=== PATIENT | male | born 1935 | race Caucasian/White ===

== ENCOUNTER → 2017-01-14 | Outpatient (CLI) | payer MEDICARE, BC ==
[2017-01-14 11:58] LABS: Potassium 4.9 mmol/L (3.5-5.1)
== END | disposition home or self-care (01) ==
LOC: LABWHC1 11:10
PROVIDERS: ATTEND Internal Medicine Interventional Cardiology
DX: I50.9 Heart failure, unspecified (principal); I25.10 Atherosclerotic heart disease of native coronary artery without angina pectoris
CPT/HCPCS: 36415; 80048

== ENCOUNTER 2017-01-20 18:46 | Inpatient (IN) | payer MEDICARE, BC ==
[2017-01-20] MEDS ORDERED: SODIUM CHLORIDE 0.9% 1,000 ML IV STA (19:23)
[2017-01-20] MEDS ORDERED: IPRATROPIUM-ALBUTEROL 3 ML NEB INHALATION STA (19:23)
--- NOTE | 2017-01-20 19:29 | ED ---
General Adult HPI - General Chief complaint: Shortness of Breath Stated complaint: SOB, Weakness Time Seen by Provider: 01/20/17 19:08 Source: patient, family Mode of arrival: wheelchair Limitations: no limitations - History of Present Illness Initial comments: This 81-year-old white male presents with with a complaint of some weakness and fatigue which has been present over the last 3 days. She gives most of the history is patient does have some Parkinson's disease and dementia. She relates that he is normally very active but has been much less active recently. He will sleep a lot. He is not eating much. She denies any focal weakness and it seems more generalized. She states that at times he has some irregular are sporadic difficulties in breathing. He denies any chest pain. She is worried about the possibility of dehydration. He also has had some swelling to his left leg this past week. She states that it seems as though his abdominal girth is somewhat increased are swollen. She denies any known fever. He was able to walk to the car [employer] but this is about as much activity as he is done in the past several days. No other complaints or modifying factors. - Related Data Home Medications Medication Instructions Recorded Confirmed Insuln Asp Prt/Insulin Aspart 15 units SQ BID@0800,1700 11/10/13 01/20/17 [NovoLOG MIX 70-30 VIAL] Cholecalciferol [Vitamin D3] 2,000 unit PO DAILY@1200 05/10/14 01/20/17 Insulin NPH Human Isophane 15 units SQ HS 05/10/14 01/20/17 [humuLIN N] Rivastigmine 4.6MG/24Hr Patch 1 each TRANSDERM Q24HR 05/10/14 01/20/17 [Exelon 4.6MG/24Hr Patch] Bimatoprost [Lumigan .01% Ophth 1 drop BOTH EYES HS 02/28/15 01/20/17 Soln] Losartan Potassium [Losartan 100 mg PO AC-BRKFST 02/28/15 01/20/17 Potassium] Aspirin 325 mg PO DAILY@1200 01/20/17 01/20/17 Atorvastatin [Lipitor] 40 mg PO HS 01/20/17 01/20/17 Carbidopa/Levodopa [Sinemet 25-100 1 tab PO QID 07/18/17 07/18/17 mg] Carbidopa/Levodopa [Sinemet Cr 2 tab PO HS 01/20/17 01/20/17 50-200 mg] Carboxymethylcellulose Sodium 1 drop BOTH EYES HS 01/20/17 01/20/17 [Refresh Tears] Diazepam [Valium] 2.5 - 5 mg PO BID@0800,1200 01/20/17 01/20/17 Docusate [Colace] 100 mg PO DAILY@1200 01/20/17 01/20/17 Furosemide [Lasix] 10 mg PO DAILY 01/20/17 01/20/17 Melatonin 12mg 12 mg PO HS 01/20/17 01/20/17 Metoprolol Tartrate [Lopressor] 50 mg PO BID 01/20/17 01/20/17 Midodrine HCl [ProAmatine] 2.5 mg PO TID 01/20/17 01/20/17 Ranolazine [Ranexa] 500 mg PO BID 01/20/17 01/20/17 Vit C/E/Zn/Coppr/Lutein/Zeaxan 1 cap PO DAILY 01/20/17 01/20/17 [Preservision Areds 2 Softgel] Allergies Allergy/AdvReac Type Severity Reaction Status Date / Time No Known Allergies Allergy Verified 01/20/17 19:22 Review of Systems ROS Statement: Those systems with pertinent positive or pertinent negative responses have been documented in the HPI. ROS Other: All systems not noted in ROS Statement are negative. Past Medical History Past Medical History: Atrial Fibrillation, Coronary Artery Disease (CAD), Chest Pain / Angina, Diabetes Mellitus, Hypertension, Neurologic Disorder, Osteoarthritis (OA), Skin Disorder Additional Past Medical History / Comment(s): migraines, bruises easily, frequent urination, macular degeneration, CAD, CABG, A.FIB, PARKINSON'S, History of Any Multi-Drug Resistant Organisms: None Reported Past Surgical History: Coronary Bypass/CABG Additional Past Surgical History / Comment(s): CABG 5 VESSEL 1996 IN [facility], "umbillical surgery", BILATERAL cataracts. PARTIAL KNEE REPLACEMENT R SIDE. Past Anesthesia/Blood Transfusion Reactions: Motion Sickness Additional Past Anesthesia/Blood Transfusion Reaction / Comment(s): PT RECIEVED BLOOD NO REACTION Past Psychological History: No Psychological Hx Reported Smoking Status: Never smoker Past Alcohol Use History: Occasional Past Drug Use History: None Reported - Past Family History Mother Additional Family Medical History / Comment(s): MOTHER AT 88. SHE HAD PARKINSON'S DX. Father Family Medical History: CVA/TIA Additional Family Medical History / Comment(s): FATHER AT AGE 71 OF CVA. General Exam - General Exam Comments Initial Comments: GENERAL: The patient is well nourished and well hydrated. VITAL SIGNS: Heart rate, blood pressure, respiratory rate reviewed as recorded in nurse's notes. EYES: Pupils are round and reactive. Extraocular movements are intact. No conjunctival / lid redness or swelling. ENT: No external evidence of injury, swelling, or ecchymosis. Airway is patent. Throat is clear. NECK: Nontender. No swelling or evidence of injury. No subcutaneous emphysema. Trachea is midline. No thyroid mass. HEART: Regular rate and rhythm. Good peripheral pulses. LUNGS/CHEST: Breath sounds clear and equal bilaterally. No rales, rhonchi, or wheezes. No ecchymosis, subcutaneous emphysema, or tenderness. Pulse ox is approximately 92% on room air. ABDOMEN: Abdomen soft without tenderness. No palpable masses or organomegaly. No peritoneal signs. No abdominal wall swelling or ecchymosis. EXTREMITIES: There is left lower extremity edema and swelling as compared to the right in the calf region. Normal muscle tone and function. No thoracolumbar tenderness. NEUROLOGIC: Sensation is grossly intact. Cranial nerve exam reveals face is symmetrical, tongue is midline, speech is clear. SKIN: No abrasions or ecchymosis is noted. No induration or masses noted. PSYCHIATRIC: Alert and in no distress. He will answer questions appropriately. Limitations: no limitations Course Vital Signs 01/20/17 01/20/17 01/20/17 19:08 19:14 19:19 Temperature 97.8 F Pulse Rate 109 H Pulse Rate [ 109 H Wildlife Biostation Research Ecologist ] Respiratory 26 H 26 H Rate Blood Pressure 139/86 O2 Sat by Pulse 93 L Oximetry 01/20/17 01/20/17 01/20/17 19:21 20:05 20:15 Temperature Pulse Rate 91 93 Pulse Rate [ Wildlife [employer] Research Ecologist ] Respiratory 26 H Rate Blood Pressure O2 Sat by Pulse Oximetry Medical Decision Making - Medical Decision Making The patient was seen and examined. All diagnostics were reviewed. The EKG shows evidence of atrial flutter with a variable AV block. There is evidence of a left bundle branch block. The AK interval was not measured. The QRS duration is 148 the QTc interval is 522. The patient was placed on a cardiac monitor technician and his heart rate is approximately 92. The patient does receive a DuoNeb breathing treatment. The laboratory is reviewed and this does show mild stable renal insufficiency. The troponin and CK-MB are mildly elevated. The BNP is significantly elevated at 13,000. The chest x-ray does show evidence of congestive heart failure. Radiology notes that a right lower lobe infiltrate cannot be ruled out. Postoperative changes are noted. It is felt as though he has a degree of congestive heart failure and would benefit from admission to the hospital for further treatment. It is felt less likely that this is related to any pneumonia. His lower extremity venous Doppler is currently pending but will be followed up with. Case is discussed with internal medicine and they are agreeable with admission. - Lab Data Result diagrams: 01/20/17 19:25 01/20/17 19:25 Lab Results 01/20/17 01/20/17 01/20/17 Range/Units 19:25 19:25 19:25 WBC 5.4 (3.8-10.6) k/uL RBC 3.93 L (4.30-5.90) m/uL Hgb 14.3 (13.0-17.5) gm/dL Hct 43.5 (39.0-53.0) % MCV 110.7 H (80.0-100.0) fL MCH 36.4 H (25.0-35.0) pg MCHC 32.9 (31.0-37.0) g/dL RDW 14.2 (11.5-15.5) % Plt Count 154 (150-450) k/uL Neutrophils % 67 % Lymphocytes % 19 % Monocytes % 9 % Eosinophils % 2 % Basophils % 1 % Neutrophils # 3.6 (1.3-7.7) k/uL Lymphocytes # 1.0 (1.0-4.8) k/uL Monocytes # 0.5 (0-1.0) k/uL Eosinophils # 0.1 (0-0.7) k/uL Basophils # 0.1 (0-0.2) k/uL Macrocytosis Marked Sodium 138 (137-145) mmol/L Potassium 4.7 (3.5-5.1) mmol/L Chloride 105 (98-107) mmol/L Carbon Dioxide 24 (22-30) mmol/L Anion Gap 9 mmol/L BUN 31 H (9-20) mg/dL Creatinine 1.54 H (0.66-1.25) mg/dL Est GFR (MDRD) Af Amer 53 (>60 ml/min/1.73 sqM) Est GFR (MDRD) Non-Af 43 (>60 ml/min/1.73 sqM) Glucose 209 H (74-99) mg/dL Calcium 8.5 (8.4-10.2) mg/dL Total Bilirubin 1.0 (0.2-1.3) mg/dL AST 19 (17-59) U/L ALT 12 L (21-72) U/L Alkaline Phosphatase 88 (38-126) U/L Total Creatine Kinase 73 (55-170) U/L CK-MB (CK-2) 3.7 H* (0.0-2.4) ng/mL CK-MB (CK-2) Rel Index 5.1 Troponin I 0.036 H* (0.000-0.034) ng/mL NT-Pro-B Natriuret Pep pg/mL Total Protein 6.2 L (6.3-8.2) g/dL Albumin 3.4 L (3.5-5.0) g/dL Urine Color Urine Appearance (Clear) Urine pH (5.0-8.0) Ur Specific [place] (1.001-1.035) Urine Protein (Negative) Urine Glucose (UA) (Negative) Urine Ketones (Negative) Urine Blood (Negative) Urine Nitrite (Negative) Urine Bilirubin (Negative) Urine Urobilinogen (<2.0) mg/dL Ur Leukocyte Esterase (Negative) Urine RBC (0-5) /hpf Urine WBC (0-5) /hpf Ur Squamous Epith Cells (0-4) /hpf Urine Bacteria (None) /hpf Hyaline Casts (0-2) /lpf Urine Mucus (None) /hpf 01/20/17 01/20/17 Range/Units 19:33 20:00 WBC (3.8-10.6) k/uL RBC (4.30-5.90) m/uL Hgb (13.0-17.5) gm/dL Hct (39.0-53.0) % MCV (80.0-100.0) fL MCH (25.0-35.0) pg MCHC (31.0-37.0) g/dL RDW (11.5-15.5) % Plt Count (150-450) k/uL Neutrophils % % Lymphocytes % % Monocytes % % Eosinophils % % Basophils % % Neutrophils # (1.3-7.7) k/uL Lymphocytes # (1.0-4.8) k/uL Monocytes # (0-1.0) k/uL Eosinophils # (0-0.7) k/uL Basophils # (0-0.2) k/uL Macrocytosis Sodium (137-145) mmol/L Potassium (3.5-5.1) mmol/L Chloride (98-107) mmol/L Carbon Dioxide (22-30) mmol/L Anion Gap mmol/L BUN (9-20) mg/dL Creatinine (0.66-1.25) mg/dL Est GFR (MDRD) Af Amer (>60 ml/min/1.73 sqM) Est GFR (MDRD) Non-Af (>60 ml/min/1.73 sqM) Glucose (74-99) mg/dL Calcium (8.4-10.2) mg/dL Total Bilirubin (0.2-1.3) mg/dL AST (17-59) U/L ALT (21-72) U/L Alkaline Phosphatase (38-126) U/L Total Creatine Kinase (55-170) U/L CK-MB (CK-2) (0.0-2.4) ng/mL CK-MB (CK-2) Rel Index Troponin I (0.000-0.034) ng/mL NT-Pro-B Natriuret Pep 90400 pg/mL Total Protein (6.3-8.2) g/dL Albumin (3.5-5.0) g/dL Urine Color Yellow Urine Appearance Clear (Clear) Urine pH 6.0 (5.0-8.0) Ur Specific [place] 1.017 (1.001-1.035) Urine Protein 2+ H (Negative) Urine Glucose (UA) Negative (Negative) Urine Ketones Negative (Negative) Urine Blood Negative (Negative) Urine Nitrite Negative (Negative) Urine Bilirubin Negative (Negative) Urine Urobilinogen 4.0 (<2.0) mg/dL Ur Leukocyte Esterase Negative (Negative) Urine RBC 2 (0-5) /hpf Urine WBC 3 (0-5) /hpf Ur Squamous Epith Cells 1 (0-4) /hpf Urine Bacteria Rare H (None) /hpf Hyaline Casts 4 H (0-2) /lpf Urine Mucus Rare H (None) /hpf Disposition Clinical Impression: Weakness, Dementia, Parkinson disease, Hypoxia, Left leg swelling, CHF ( congestive heart failure), Elevated troponin level, Renal insufficiency, Hyperglycemia, Non-ST elevation KS (NSTEMI) Disposition: ADMITTED IP TO THIS HOSP Condition: Fair Referrals: Peyman Bryant MD [Primary Care Provider] - 1-2 days Time of Disposition: 20:53 Decision Date: 01/20/17 Decision Time: 20:53
[2017-01-20 19:43] LABS: Basophils # (A) 0.1 k/uL (0-0.2); Basophils % (A) 1 %; CH 35.1; CHCM 31.9; Eosinophils # (A) 0.1 k/uL (0-0.7); Eosinophils % (A) 2 %; HCT 43.5 % (39.0-53.0); HDW 2.27; HGB 14.3 gm/dL (13.0-17.5); Luc # (Auto) 0.12; Luc % (Auto) 2; Lymphocytes % (A) 19 %; MCH 36.4 pg (25.0-35.0); MCHC 32.9 g/dL (31.0-37.0); MCV 110.7 fL (80.0-100.0); Macrocytosis Marked; Mean Platelet Volume 8.6; Monocytes # (A) 0.5 k/uL (0-1.0); Monocytes % (A) 9 %; Neutrophils # (A) 3.6 k/uL (1.3-7.7); Neutrophils % (A) 67 %; RBC 3.93 m/uL (4.30-5.90); RDW 14.2 % (11.5-15.5); WBC 5.4 k/uL (3.8-10.6); WBC (Perox) 5.45
[2017-01-20 19:54] LABS: Calcium 8.5 mg/dL (8.4-10.2); Potassium 4.7 mmol/L (3.5-5.1); Total Protein 6.2 g/dL (6.3-8.2)
[2017-01-20 20:06] LABS: INR 1.1 (<1.2); Partial Thromboplastin Time 24.4 sec (22.0-30.0); Prothrombin Time 11.4 sec (9.0-12.0)
[2017-01-20 20:20] LABS: Creatine Kinase MB 3.7 ng/mL (0.0-2.4); Troponin I 0.036 ng/mL (0.000-0.034)
[2017-01-20 20:22] LABS: Appearance,Urine Clear (Clear); Bacteria,Urine Rare /hpf; Bilirubin,Urine Negative (Negative); Glucose,Urine (UA) Negative (Negative); Ketones,Urine Negative (Negative); Leukocyte Esterase,Urine Negative (Negative); Mucus,Urine Rare /hpf; Nitrite,Urine Negative (Negative); Particle Count 1252; Protein,Urine 2+ (Negative); RBC,Urine 2 /hpf (0-5); Specific Gravity,Urine 1.017 (1.001-1.035); Squamous Epithelial Cell,Urine 1 /hpf (0-4); UA Billing (MACRO vs. MICRO) MICRO; WBC,Urine 3 /hpf (0-5)
[2017-01-20] MEDS ORDERED: NITROGLYCERIN OINT 1 INCH/GM PACKET TOPICAL STA (20:39)
[2017-01-20] MEDS ORDERED: ASPIRIN 81 MG CHEW PO STA (20:39)
[2017-01-20] MEDS ORDERED: FUROSEMIDE 10 MG/ML 10 ML VIAL IV STA (20:41)
--- NOTE | 2017-01-20 20:42 | XR ---
EXAMINATION TYPE: XR chest 2V DATE OF EXAM: 01/20/2017 COMPARISON: 02/28/2015 HISTORY: Difficulty breathing chest pain TECHNIQUE: Frontal and lateral views of the chest are obtained. FINDINGS: Heart is enlarged. There is pulmonary vascular congestion there is blunting of costophreni c angles. Thoracic aorta is atheromatous. There is left axillary pacemaker with the lead tips in the right ventricle. Bony thorax appears intact. IMPRESSION: Congestive heart failure with pleural effusions. This appears worse than last exam. Righ t lower lobe pneumonia cannot be excluded.
[2017-01-20] MEDS ORDERED: HEPARIN SODIUM,PORCINE 5,000 UNIT/ML 1 ML VIAL IV ONE (21:08)
[2017-01-20] MEDS ORDERED: HEPARIN SODIUM,PORCINE 5,000 UNIT/ML 1 ML VIAL IV PRN (21:08)
[2017-01-20] MEDS ORDERED: HEPARIN SODIUM,PORCINE/D5W PMX 25,000 UNIT in DEXTROSE/WATER 1 500ML.BAG IV SCH (21:15)
--- NOTE | 2017-01-20 21:29 | US ---
EXAMINATION TYPE: US venous doppler duplex LE LT DATE OF EXAM: 01/20/2017 9:18 PM COMPARISON: NONE CLINICAL HISTORY: Swelling left leg SIDE PERFORMED: Left TECHNIQUE: The lower extremity deep venous system is examined utilizing real time linear array sonog comfort with graded compression, doppler sonography and color-flow sonography. VESSELS IMAGED: External Iliac Vein (EIV) Common Femoral Vein Deep Femoral Vein Greater Saphenous Vein * Femoral Vein Popliteal Vein Small Saphenous Vein * Proximal Calf Veins (* superficial vessels) Left Leg: Negative for DVT IMPRESSION: Negative exam. No evidence of deep venous thrombosis in left leg.
[2017-01-20 21:39] LABS: Glucose,Whole Blood 197 mg/dL (75-99)
[2017-01-20] MEDS ORDERED: MIDODRINE 5 MG TAB PO SCH (22:00)
[2017-01-20] MEDS: DIAZEPAM 5 MG TAB PO PRN (22:56)
[2017-01-20] MEDS: CARBIDOPA-LEVODOPA 25-100 MG 1 EACH TAB PO SCH (22:56)
[2017-01-21 03:52] LABS: Basophils % (A) 1 %; CH 35.5; CHCM 31.4; Eosinophils # (A) 0.1 k/uL (0-0.7); Eosinophils % (A) 2 %; HCT 42.2 % (39.0-53.0); HDW 2.15; HGB 13.5 gm/dL (13.0-17.5); Luc # (Auto) 0.12; Luc % (Auto) 2; Lymphocytes # (A) 0.9 k/uL (1.0-4.8); Lymphocytes % (A) 16 %; MCH 36.4 pg (25.0-35.0); MCHC 32.1 g/dL (31.0-37.0); MCV 113.6 fL (80.0-100.0); Macrocytosis Marked; Mean Platelet Volume 8.8; Monocytes # (A) 0.5 k/uL (0-1.0); Monocytes % (A) 9 %; Neutrophils # (A) 3.9 k/uL (1.3-7.7); Neutrophils % (A) 71 %; RBC 3.72 m/uL (4.30-5.90); RDW 14.5 % (11.5-15.5); WBC 5.5 k/uL (3.8-10.6); WBC (Perox) 5.67
[2017-01-21 04:30] LABS: Creatine Kinase MB 3.3 ng/mL (0.0-2.4); Troponin I 0.039 ng/mL (0.000-0.034)
[2017-01-21 06:11] LABS: Glucose,Whole Blood 150 mg/dL (75-99)
[2017-01-21] MEDS: LOSARTAN 50 MG TAB PO SCH (06:48)
[2017-01-21] MEDS ORDERED: FUROSEMIDE 10 MG/ML 4 ML VIAL IV SCH (09:00)
[2017-01-21] MEDS ORDERED: ASPIRIN 325 MG TAB PO SCH (09:00)
[2017-01-21] MEDS: NITROGLYCERIN OINT 1 INCH/GM PACKET TOPICAL SCH ×4 (09:02→23:36)
[2017-01-21] MEDS: CARBIDOPA-LEVODOPA 25-100 MG 1 EACH TAB PO SCH ×4 (09:07→21:57)
[2017-01-21] MEDS: RANOLAZINE 500 MG TAB.ER.12H PO SCH ×2 (09:07→22:01)
[2017-01-21] MEDS: METOPROLOL TARTRATE 50 MG TAB PO SCH ×2 (09:07→22:01)
[2017-01-21] MEDS: FUROSEMIDE 10 MG/ML 4 ML VIAL IV SCH ×3 (09:08→23:36)
[2017-01-21] MEDS: RIVASTIGMINE 4.6MG/24HR PATCH TRANSDERM SCH (09:08)
[2017-01-21] MEDS: VIT A,C & E-LUTEIN-MINERALS 1 EACH TAB PO SCH (09:08)
--- NOTE | 2017-01-21 09:34 | ECHOF ---
Referral Reason:Heart Failure MEASUREMENTS -------- HEIGHT: 175.3 cm WEIGHT: 91.2 kg BP: 129/68 IVSd: 0.7 cm (0.6 - 1.1) LVIDd: 5.0 cm (3.9 - 5.3) LVPWd: 0.9 cm (0.6 - 1.1) IVSs: 0.8 cm LVIDs: 4.6 cm LVPWs: 0.9 cm Ao Diam: 3.1 cm (2.0 - 3.7) AV Cusp: 1.4 cm (1.5 - 2.6) LA Diam: 3.0 cm (2.7 - 3.8) MV EXCURSION: 19.436 mm (> 18.000) MV EF SLOPE: 183 mm/s (70 - 150) EPSS: 0.5 cm MV E Henri: 0.96 m/s MV DecT: 76 ms MV A Henri: 0.48 m/s MV E/A Ratio: 2.03 RAP: 5.00 mmHg RVSP: 28.35 mmHg FINDINGS -------- Atrial fibrillation. Paced rhythm. This was a technically difficult study with suboptimal views. Left ventricular wall thickness is normal. There is severe global hypokinesis of LV . Overall left ventricular systolic function is severely impaired with, an EF < 20%. The right ventricle is normal in size and function. The left atrium is normal in size. The right atrium is normal in size. 1.5mg of Definity was utilized for enhancement of images There is mild aortic valve sclerosis. Mild mitral annular calcification present. Mild mitral regurgitation is present. Trace tricuspid regurgitation present. The right ventricular systolic pressure, as measured by Doppler, is 28.35mmHg. The pulmonic valve was not well visualized. There is no pulmonic regurgitation present. The aortic root size is normal. There is no pericardial effusion. CONCLUSIONS -------- 1. Paced rhythm. 2. Trace tricuspid regurgitation present. 3. The right ventricular systolic pressure, as measured by Doppler, is 28.35mmHg. 4. There is no pulmonic regurgitation present. 5. The aortic root size is normal. 6. There is no pericardial effusion. 7. This was a technically difficult study with suboptimal views. 8. Left ventricular wall thickness is normal. 9. There is severe global hypokinesis of LV . 10. Overall left ventricular systolic function is severely impaired with, an EF < 20%. 11. The left atrium is normal in size. 12. 1.5mg of Definity was utilized for enhancement of images 13. There is mild aortic valve sclerosis. 14. Mild mitral regurgitation is present. AIRCRAFT SHIPPING CHECKER: Meenakshi Oconnell RDCS
[2017-01-21 09:51] LABS: Creatine Kinase MB 3.2 ng/mL (0.0-2.4); Troponin I 0.037 ng/mL (0.000-0.034)
[2017-01-21] MEDS: DOCUSATE 100 MG CAP PO SCH (11:36)
[2017-01-21] MEDS: CHOLECALCIFEROL 1,000 UNIT TAB PO SCH (11:36)
[2017-01-21] MEDS: DIAZEPAM 5 MG TAB PO PRN (11:36)
[2017-01-21] MEDS ORDERED: HEPARIN SODIUM,PORCINE 5,000 UNIT/ML 1 ML VIAL ONE (11:43)
[2017-01-21] MEDS: HEPARIN SODIUM,PORCINE 5,000 UNIT/ML 1 ML VIAL SQ SCH ×2 (11:44→22:00)
[2017-01-21] MEDS: INSULN ASP PRT/INSULIN ASPART 100 UNIT/ML 10 ML VIAL SQ SCH ×2 (11:44→17:44)
--- NOTE | 2017-01-21 20:44 | CONS ---
This is an 81-year-old gentleman with a known history of severe significant CAD , parkinsonism, chronic headaches, type 2 diabetes, hypertension, hyperlipidemia. He has had a cardiac catheterization performed by me in 2007, after which I suggested that we pursue medical therapy and no intervention. He also developed atrial fibrillation with slow rate, and after extensive discussion ( ) because of high fall risk, he has not been taking any anticoagulation. He comes into the hospital, brought in by his , with complaints of feeling weak, tired, exhausted, lack of energy and shortness of breath. At the time of my evaluation, he is resting comfortably. He denies any chest discomfort. He had also one episode of near-syncope 3 days ago. He is having progressive weakness and lack of energy and also not sleeping well. PAST MEDICAL HISTORY: 1. Ischemic cardiomyopathy. 2. Persistent chronic atrial fibrillation. 3. Sick sinus syndrome with a permanent pacemaker. 4. Type 2 diabetes mellitus. 5. Hypertension. 6. Hyperlipidemia. 7. Autonomic dysfunction, on midodrine. Medications at home include: 1. Aspirin. 2. Atorvastatin. 3. Exelon patch. 4. Lopressor. 5. Losartan. 6. Melatonin. 7. Midodrine. 8. Ranexa. 9. NovoLog. Patient had previous bypass surgery as well, and a cardiac catheterization from May 2008 revealed that [place] ( ) and circumflex and moderate non- critical disease. RCA is totally occluded. Vein graft to the PDA branch of RCA and vein graft to the diagonal was widely patent. Obtuse marginal grafts are not visualized and [place] to LAD was atrophic with very limited flow. His bypass surgery was performed in 1996. On examination, blood pressure is 130/80. Pulse rate is about 80 per minute, irregular. HEENT: Unremarkable. Fundus was not examined by me. Neck is supple. There is JVD of 1 to 2 cm. No carotid bruit. Heart exam reveals S1, S2 with tachycardia, a short systolic murmur at the base. Lungs reveal diminished air entry. Abdomen is soft, non-tender. Lower extremities reveal 1+ edema bilaterally. CENTRAL NERVOUS SYSTEM: Grossly within normal limits. EKG revealed an atrial flutter with a variable block, IVCD, and non-specific ST- T changes. Laboratory data suggest significant elevation of BNP. Troponin profile does not suggest any myocardial injury, as the average numbers are 0.03. D-dimer is modestly elevated. IMPRESSION: 1. Exacerbation of congestive heart failure. 2. Ischemic cardiomyopathy. 3. Chronic persistent atrial fibrillation. 4. History of chronic headaches. 5. Parkinsonism. RECOMMENDATIONS: I am recommending that we continue IV Lasix for now as ordered by Dr. Bryant, continue his other medications. Based on clinical course, I will make further recommendations. His medications have all been resumed. Patient also had a venous Doppler study performed of his left leg which was negative for DVT. Echocardiogram suggests significant decrease in contractility and ejection fraction of about 20% or less. He has aortic valve sclerosis but no significant pulmonary hypertension. Continue diuresis for now and other medications. Based on clinical course, I will make further recommendations. Prognosis remains guarded. Thank you very much for the consult. BILLIE
[2017-01-21] MEDS: ARTIFICIAL TEARS-HYPROMELLOSE DROPS 15 ML BTL BOTH EYES SCH (21:59)
[2017-01-21] MEDS: ATORVASTATIN 40 MG TAB PO SCH (21:59)
[2017-01-21] MEDS: CARBIDOPA-LEVODOPA ER 50-200MG 1 EACH TABLET.ER PO SCH (21:59)
[2017-01-21] MEDS: LATANOPROST 0.005% OPHTH DROPS 2.5 ML BTL BOTH EYES SCH (22:00)
[2017-01-21] MEDS: INSULIN NPH 300 UNIT/3 ML VIAL SQ SCH (22:00)
[2017-01-21] MEDS: MELATONIN 5 MG TABLET PO SCH (22:01)
[2017-01-21 22:25] LABS: Glucose,Whole Blood 137 mg/dL (75-99)
[2017-01-22 06:33] LABS: Basophils % (A) 1 %; CHCM 31.4; Eosinophils # (A) 0.2 k/uL (0-0.7); Eosinophils % (A) 3 %; HCT 44.2 % (39.0-53.0); HGB 14.2 gm/dL (13.0-17.5); Luc # (Auto) 0.18; Luc % (Auto) 3; Lymphocytes # (A) 1.2 k/uL (1.0-4.8); Lymphocytes % (A) 21 %; MCHC 32.1 g/dL (31.0-37.0); MCV 112.2 fL (80.0-100.0); Macrocytosis Marked; Mean Platelet Volume 8.3; Monocytes # (A) 0.5 k/uL (0-1.0); Monocytes % (A) 10 %; Neutrophils # (A) 3.4 k/uL (1.3-7.7); Neutrophils % (A) 62 %; RBC 3.94 m/uL (4.30-5.90); WBC 5.5 k/uL (3.8-10.6)
[2017-01-22] MEDS: LOSARTAN 50 MG TAB PO SCH (06:46)
[2017-01-22 06:54] LABS: Glucose,Whole Blood 92 mg/dL (75-99)
[2017-01-22 06:58] LABS: Manual Review Performed
[2017-01-22] MEDS: NITROGLYCERIN OINT 1 INCH/GM PACKET TOPICAL SCH (07:55)
[2017-01-22] MEDS: FUROSEMIDE 10 MG/ML 4 ML VIAL IV SCH ×3 (08:04→23:24)
[2017-01-22] MEDS: HEPARIN SODIUM,PORCINE 5,000 UNIT/ML 1 ML VIAL SQ SCH ×2 (08:04→20:40)
[2017-01-22] MEDS: ASPIRIN 81 MG CHEW PO SCH (08:05)
[2017-01-22] MEDS: METOPROLOL TARTRATE 50 MG TAB PO SCH ×2 (08:05→20:40)
[2017-01-22] MEDS: RANOLAZINE 500 MG TAB.ER.12H PO SCH ×2 (08:05→20:40)
[2017-01-22] MEDS: VIT A,C & E-LUTEIN-MINERALS 1 EACH TAB PO SCH (08:05)
[2017-01-22] MEDS: RIVASTIGMINE 4.6MG/24HR PATCH TRANSDERM SCH (08:05)
[2017-01-22] MEDS: CARBIDOPA-LEVODOPA 25-100 MG 1 EACH TAB PO SCH ×4 (08:05→20:41)
[2017-01-22] MEDS: DIAZEPAM 5 MG TAB PO PRN ×2 (08:08→17:23)
[2017-01-22] MEDS: INSULN ASP PRT/INSULIN ASPART 100 UNIT/ML 10 ML VIAL SQ SCH ×2 (08:08→17:11)
[2017-01-22 08:21] LABS: Potassium 3.9 mmol/L (3.5-5.1)
[2017-01-22] MEDS: DOCUSATE 100 MG CAP PO SCH (11:37)
[2017-01-22] MEDS: CHOLECALCIFEROL 1,000 UNIT TAB PO SCH (11:37)
[2017-01-22 11:48] LABS: Glucose,Whole Blood 123 mg/dL (75-99)
--- NOTE | 2017-01-22 12:04 | HP ---
CHIEF COMPLAINT: Weakness HISTORY OF PRESENT ILLNESS: This 81-year-old gentleman was brought into the emergency room by the spouse. The patient had on Thursday, that is at least about 60 hours prior to this admission, had an episode of syncope lasting about a minute or so. The patient got up from a sitting position, walked to the car which was a short distance, maybe 30 feet or so. Patient primarily became unresponsive and the eyes just briefly rolled. The patient recovered from that pretty fast. 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 It was also noted by the spouse to have increasing edema and became more lethargic and weak and thus the patient was brought in the emergency room. The reports that he has had some shortness of breath. The patient does have mild dementia but he is able to keep a fairly good history. Patient has a history of chronic atrial fibrillation and does have a pacemaker. Patient did take all his medications. PAST MEDICAL HISTORY: Significant for hypertension of long-standing duration, history of diabetes mellitus for about 27 years. History of CABG x5 back in 1996. History of macular degeneration, chronic headaches and Parkinson's and history of herpes zoster in the past. No history of any myocardial infarction, severe lung disease, diabetic kidney disease, ulcers, TB, hepatitis. No history of any rheumatic fever, myocardial infarction or CVA. Patient also has history of Parkinson's. The Parkinson's seems to be fairly controlled with the present medical regimen. Patient has a history of frequent chronic headaches, mostly daily headache, little help by medications. ( ) did seem to help but the patient has increased edema with that. PAST SURGICAL HISTORY: Significant for umbilical hernia repair, right total knee arthroplasty, CABG in 1996, cataract surgery, colonoscopy in 2003. PERSONAL HISTORY: Nonsmoker, no alcohol. VACCINATION HISTORY: Previous tetanus, fluid shots, pneumo vaccine in 2010. ALLERGIES: LIPITOR which causes him to have gynecomastia. Medications include: 1. Eye vitamins. 2. Exelon 4.6 mg patch every 24 hours. 3. Ranexa 500 mg b.i.d. 4. Midodrine 2.5 mg t.i.d. 5. Metoprolol tartrate 50 mg b.i.d. 6. Melatonin 12 mg daily. 7. Losartan potassium 100 mg daily. 8. ( ) 9. NovoLog mix 70/30 fifteen units b.i.d. 0800 and 1700. 10. Insulin NPH 15 units a day. 11. Lasix 10 mg daily which was decreased daily from 20 mg. 12. Colace 100 mg daily. 13. Valium 2.5 to 5 mg p.r.n. for headaches and muscle aches. 14. Vitamin D3 two thousand units daily. 15. Refresh tears 1 drop both eyes at bedtime. 16. Carbidopa levodopa 50/200 two tablets at bedtime. 17. Sinemet 25/100 one q.i.d. 18. Eye drops Lumigan. 19. Lipitor 40 mg at bedtime. 20. Aspirin 325 mg daily. REVIEW OF SYSTEMS: NEURO: Has frequent headaches, chronic headache with no change, no dizziness. PSYCH: No anxiety. CARDIAC: No chest pain, palpitation. RESPIRATORY: No shortness of breath, cough, hemoptysis. GI: No nausea, vomiting, abdominal pain, diarrhea. : No present symptoms. ( ) EXTREMITIES: No pain. CONSTITUTIONAL: No fever, chills. PHYSICAL EXAMINATION: Pleasant gentleman in no distress at present. Vital signs reveal temperature 96.1, pulse is 92, respirations 18, blood pressure 138/86, pulse ox of 94% on room air. HEENT: Normocephalic. NECK: 1+ JVD, no carotid bruits appreciated. CHEST EXAMINATION: Mild decreased effort at the bases. CARDIAC: Distant heart sounds, S1, S2 with no gallop, systolic murmur, 2/6 left sternal border. ABDOMEN: Soft, bowel sounds are active. EXTREMITIES: Reveal trace edema right ankle, 1 to 2+ edema, left leg pain. NEUROLOGIC: Awake, alert, oriented. Well-coordinated movements. LABORATORY ASSESSMENT: Chest x-ray suggests CHF. Labs revealed BMP, PE and MP markedly elevated and no significant elevation on CPK's. Troponin remains stable at 0.037. Platelet count is mildly decreased at 136. Patient's BMP was about 13,000. ASSESSMENT: 1. Acute on chronic congestive cardiac failure secondary to systolic dysfunction. 2. Dilated cardiomyopathy, ischemic. 3. Chronic atrial fibrillation. 4. Diabetes mellitus. 5. Parkinson's. 6. Dementia. PLAN: The patient is stable, continue present medical regimen with IV diuresis. Patient's condition was explained to the patient and his spouse on the second visit today. Over the last visit, prognosis remains guarded. Patient will receive IV diuretics, potassium supplement placement as needed. Prognosis remains guarded. MTDD
--- NOTE | 2017-01-22 14:49 | PN ---
Mr. Tai admitted to the hospital with congestive heart failure. He has been diuresed aggressively, his last weight has a negative fluid balance. He is clinically feeling a lot better. He denies any chest discomfort. His breathing is much better. Plan is to continue the same diuretic program for another 24 hours. Electrolytes are acceptable. Based on clinical course, I will make further recommendation. Vital signs are stable. JVD is 1 cm. S1, S2 heard normally. Short systolic murmur noted. Lungs reveal improved air entry. Abdomen is soft. Lower extremities reveal bilateral trace to 1+ edema. MTDD
[2017-01-22 16:44] LABS: Glucose,Whole Blood 120 mg/dL (75-99)
[2017-01-22] MEDS: INSULIN NPH 300 UNIT/3 ML VIAL SQ SCH (20:39)
[2017-01-22] MEDS: ARTIFICIAL TEARS-HYPROMELLOSE DROPS 15 ML BTL BOTH EYES SCH (20:39)
[2017-01-22] MEDS: ATORVASTATIN 40 MG TAB PO SCH (20:39)
[2017-01-22] MEDS: CARBIDOPA-LEVODOPA ER 50-200MG 1 EACH TABLET.ER PO SCH (20:39)
[2017-01-22] MEDS: MELATONIN 5 MG TABLET PO SCH (20:40)
[2017-01-22] MEDS: LATANOPROST 0.005% OPHTH DROPS 2.5 ML BTL BOTH EYES SCH (20:40)
[2017-01-22 20:44] LABS: Glucose,Whole Blood 99 mg/dL (75-99)
[2017-01-23 06:19] LABS: Glucose,Whole Blood 77 mg/dL (75-99)
[2017-01-23] MEDS: LOSARTAN 50 MG TAB PO SCH (06:40)
[2017-01-23 06:41] LABS: Basophils % (A) 1 %; CH 36.1; CHCM 32.4; Eosinophils # (A) 0.2 k/uL (0-0.7); Eosinophils % (A) 4 %; HCT 41.8 % (39.0-53.0); HDW 2.22; HGB 13.8 gm/dL (13.0-17.5); Luc # (Auto) 0.14; Luc % (Auto) 3; Lymphocytes # (A) 1.3 k/uL (1.0-4.8); Lymphocytes % (A) 24 %; MCH 36.8 pg (25.0-35.0); MCV 111.7 fL (80.0-100.0); Macrocytosis Marked; Mean Platelet Volume 9.3; Monocytes # (A) 0.6 k/uL (0-1.0); Monocytes % (A) 11 %; Neutrophils # (A) 3.2 k/uL (1.3-7.7); Neutrophils % (A) 58 %; RBC 3.74 m/uL (4.30-5.90); RDW 14.8 % (11.5-15.5); WBC 5.5 k/uL (3.8-10.6); WBC (Perox) 5.08
[2017-01-23 06:53] LABS: Potassium 3.4 mmol/L (3.5-5.1)
[2017-01-23] MEDS: POTASSIUM CHLORIDE ER 20 MEQ TAB.ER PO SCH ×2 (08:26→09:27)
[2017-01-23] MEDS: RANOLAZINE 500 MG TAB.ER.12H PO SCH ×2 (08:26→20:31)
[2017-01-23] MEDS: VIT A,C & E-LUTEIN-MINERALS 1 EACH TAB PO SCH (08:27)
[2017-01-23] MEDS: CHOLECALCIFEROL 1,000 UNIT TAB PO SCH (08:27)
[2017-01-23] MEDS: ASPIRIN 81 MG CHEW PO SCH (08:27)
[2017-01-23] MEDS: DOCUSATE 100 MG CAP PO SCH (08:27)
[2017-01-23] MEDS: RIVASTIGMINE 4.6MG/24HR PATCH TRANSDERM SCH (08:28)
[2017-01-23] MEDS: CARBIDOPA-LEVODOPA 25-100 MG 1 EACH TAB PO SCH ×4 (08:28→20:32)
[2017-01-23] MEDS: HEPARIN SODIUM,PORCINE 5,000 UNIT/ML 1 ML VIAL SQ SCH ×2 (08:28→20:30)
[2017-01-23] MEDS: METOPROLOL TARTRATE 50 MG TAB PO SCH ×2 (08:28→20:31)
[2017-01-23] MEDS: INSULN ASP PRT/INSULIN ASPART 100 UNIT/ML 10 ML VIAL SQ SCH ×2 (08:31→17:30)
[2017-01-23] MEDS: SPIRONOLACTONE 25 MG TAB PO SCH (08:31)
[2017-01-23] MEDS ORDERED: FUROSEMIDE 10 MG/ML 4 ML VIAL IV SCH (09:00)
[2017-01-23] MEDS: FUROSEMIDE 10 MG/ML 4 ML VIAL IV SCH (09:25)
[2017-01-23] MEDS ORDERED: ACETAMINOPHEN TAB 325 MG TAB PO PRN (10:54)
[2017-01-23 10:58] VITALS: BMI 28.3
[2017-01-23 11:46] LABS: Glucose,Whole Blood 106 mg/dL (75-99)
--- NOTE | 2017-01-23 13:28 | P.PN ---
Subjective This is a pleasant 81-year-old gentleman who follows with Dr. Solomon in the office. He has a known history of Parkinson's, atrial fibrillation, chemo cardiomyopathy, sick sinus syndrome status post pacemaker implant, type 2 diabetes, hypertension and hyperlipidemia. Presented to the hospital with acute on chronic systolic congestive heart failure. A 2-D echo with Doppler showed severely impaired LV systolic function with an ejection fraction of less than 20%. His proBNP was 13,300. Troponins were minimally elevated at 0.036, 0.039 and 0.037. He has been on IV Lasix and has diuresed quite well, he is down 3 kg from yesterday. Upon examination, patient is sitting up in the side of the bed. He feels he is breathing better and his edema has improved. He has been up walking today and was also up in the shower and tolerated this well. His Lasix was changed to 40 mg IV push daily by his primary care physician. His renal function is fairly stable with a BUN of 29 and creatinine 1.6. Objective - Vital Signs Vital signs: Vital Signs Temp 96.8 F L 01/23/17 11:14 Pulse 70 01/23/17 11:14 Resp 18 01/23/17 11:14 BP 100/65 01/23/17 11:14 Pulse Ox 93 L 01/23/17 11:14 Intake & Output 01/22/17 01/23/17 01/23/17 18:59 06:59 18:59 Intake Total 960 600 Balance 960 600 Weight 86.9 kg 86.9 kg Intake: Oral 960 600 Other: Voiding Method Toilet Toilet # Voids 2 - Exam PHYSICAL EXAMINATION: HEENT: Head is atraumatic, normocephalic. Pupils equal, round. Neck is supple. There is no elevated jugular venous pressure. HEART EXAMINATION: Heart sounds regular, S1 and S2 normal with a systolic murmur. CHEST EXAMINATION: Lungs reveal crackles at bilateral bases. No chest wall tenderness is noted on palpation or with deep breathing. ABDOMEN: Soft, nontender. Bowel sounds are heard. No organomegaly noted. EXTREMITIES: Evidence of trace peripheral edema and no calf tenderness noted. NEUROLOGIC patient is awake, alert and oriented x3. . - Labs CBC & Chem 7: 01/23/17 06:19 01/23/17 06:19 Labs: Abnormal Lab Results - Last 24 Hours (Table) 07/20/17 07/21/17 07/21/17 Range/Units 16:31 06:19 06:19 RBC 3.74 L (4.30-5.90) m/uL MCV 111.7 H (80.0-100.0) fL MCH 36.8 H (25.0-35.0) pg Plt Count 145 L (150-450) k/uL Potassium 3.4 L (3.5-5.1) mmol/L Chloride 97 L (98-107) mmol/L Carbon Dioxide 31 H (22-30) mmol/L BUN 29 H (9-20) mg/dL Creatinine 1.60 H (0.66-1.25) mg/dL Glucose 73 L (74-99) mg/dL POC Glucose (mg/dL) 120 H (75-99) mg/dL 01/23/17 Range/Units 11:44 RBC (4.30-5.90) m/uL MCV (80.0-100.0) fL MCH (25.0-35.0) pg Plt Count (150-450) k/uL Potassium (3.5-5.1) mmol/L Chloride (98-107) mmol/L Carbon Dioxide (22-30) mmol/L BUN (9-20) mg/dL Creatinine (0.66-1.25) mg/dL Glucose (74-99) mg/dL POC Glucose (mg/dL) 106 H (75-99) mg/dL Microbiology - Last 24 Hours (Table) 01/20/17 19:25 Blood Culture - Preliminary Blood No Growth after 48 hours Assessment and Plan Plan: Assessment and plan #1 acute on chronic systolic congestive heart failure #2 ischemic cardiomyopathy #3 chronic atrial fibrillation #4 history of chronic headaches #5 parkinsonism From cardiology perspective, medications were reviewed and we'll continue the same. Likely switch patient to by mouth Lasix tomorrow. Further recommendations to follow. The above dictated assessment and findings were discussed with signing physician. The impression and plan of care have been directed as dictated. Aide Devries, Nurse Practitioner, acting as scribe for signing physician.
--- NOTE | 2017-01-23 14:49 | PN ---
DATE OF SERVICE: 01/22/2017 CHIEF COMPLAINT: Reevaluation. HISTORY OF PRESENT ILLNESS: This is an elderly gentleman who was admitted to the hospital because of near-syncopal episode, ( ) and increased edema, fatigue, and shortness of breath. The patient was noted to have evidence suggestive of congestive cardiac failure secondary to systolic dysfunction. The patient was admitted to the hospital. He also has underlying history of dilated ischemic cardiomyopathy and chronic atrial fibrillation. He did have an echocardiogram yesterday which reveals the patient has an ejection fraction of 20%. The patient denies any chest pain. No symptoms to suggest acute coronary insufficiency. The patient when diuresed with Lasix with improvement in his symptomatology. He does have history of Parkinson's and history of diabetes mellitus adequately controlled. REVIEW OF SYSTEMS: NEUROLOGIC: Denies any headaches at present. Does have history chronic daily headache. No dizziness. PSYCHIATRIC: No anxiety, depression. CARDIAC: Denies chest pain, angina, palpitations. RESPIRATORY: Denies shortness of breath. Some orthopnea. No PND. No chest pain. GASTROINTESTINAL: No nausea, vomiting, abdominal pain, diarrhea, constipation. GENITOURINARY: No symptoms of dysuria, hematuria. Does have frequency. EXTREMITIES: No pain. CONSTITUTIONAL: No fever, chills. PHYSICAL EXAMINATION: GENERAL: A pleasant gentleman in no distress. VITAL SIGNS: Stable as recorded. HEENT: Normocephalic. NECK: 1 to 2+ JVD. No thyromegaly, no supraclavicular lymphadenopathy. CHEST: Reveals clear to auscultation with mild decreased air flow at the right base. CARDIAC: Distant heart sounds S1, S2 with no gallops. Irregular rhythm. Systolic murmur 2/6 apex. ABDOMEN: Soft. Bowel sounds are present. EXTREMITIES: Reveals 1+ edema. NEUROLOGIC: Awake, alert, oriented with well coordinated movements. LABORATORY ASSESSMENT: Electrolytes in adequate range. ASSESSMENT: 1. Acute congestive cardiac failure secondary to systolic dysfunction, improved. 2. Ischemic dilated cardiomyopathy. 3. History of paroxysmal atrial fibrillation. 4. Pacemaker status. 5. Parkinson's. 6. Diabetes mellitus with autonomic neuropathy. 7. Near-syncope, etiology possible postural hypotension. PLAN: The patient is stable, continue the present medical regimen. Patient's condition discussed with the patient and spouse. Prognosis remains guarded. Recommend the patient be placed for some rehabilitation due to his age, cardiac status and Parkinson's. Prognosis guarded. MTDD
[2017-01-23 16:59] LABS: Glucose,Whole Blood 129 mg/dL (75-99)
[2017-01-23] MEDS: ARTIFICIAL TEARS-HYPROMELLOSE DROPS 15 ML BTL BOTH EYES SCH (20:29)
[2017-01-23] MEDS: CARBIDOPA-LEVODOPA ER 50-200MG 1 EACH TABLET.ER PO SCH (20:30)
[2017-01-23] MEDS: INSULIN NPH 300 UNIT/3 ML VIAL SQ SCH (20:31)
[2017-01-23] MEDS: MELATONIN 5 MG TABLET PO SCH (20:31)
[2017-01-23] MEDS: LATANOPROST 0.005% OPHTH DROPS 2.5 ML BTL BOTH EYES SCH (20:31)
[2017-01-23] MEDS: ATORVASTATIN 40 MG TAB PO SCH (20:34)
[2017-01-23 21:00] LABS: Glucose,Whole Blood 217 mg/dL (75-99)
[2017-01-24 06:14] LABS: Glucose,Whole Blood 68 mg/dL (75-99)
[2017-01-24 06:20] LABS: Basophils # (A) 0.1 k/uL (0-0.2); Basophils % (A) 1 %; CH 35.8; CHCM 32.2; Eosinophils # (A) 0.2 k/uL (0-0.7); Eosinophils % (A) 3 %; HCT 41.3 % (39.0-53.0); HDW 2.15; HGB 13.9 gm/dL (13.0-17.5); Luc # (Auto) 0.18; Luc % (Auto) 3; Lymphocytes # (A) 1.2 k/uL (1.0-4.8); Lymphocytes % (A) 20 %; MCH 37.5 pg (25.0-35.0); MCHC 33.6 g/dL (31.0-37.0); MCV 111.6 fL (80.0-100.0); Macrocytosis Marked; Mean Platelet Volume 9.4; Monocytes # (A) 0.7 k/uL (0-1.0); Monocytes % (A) 11 %; Neutrophils # (A) 3.7 k/uL (1.3-7.7); Neutrophils % (A) 63 %; RDW 14.6 % (11.5-15.5); WBC (Perox) 5.93
[2017-01-24 06:28] LABS: Glucose,Whole Blood 83 mg/dL (75-99)
[2017-01-24 06:37] LABS: Potassium 3.9 mmol/L (3.5-5.1)
[2017-01-24 06:47] LABS: Manual Review Performed
[2017-01-24] MEDS: LOSARTAN 50 MG TAB PO SCH (06:48)
[2017-01-24] MEDS ORDERED: FUROSEMIDE 40 MG TAB PO SCH (09:00)
[2017-01-24] MEDS: RIVASTIGMINE 4.6MG/24HR PATCH TRANSDERM SCH (09:19)
[2017-01-24] MEDS: INSULN ASP PRT/INSULIN ASPART 100 UNIT/ML 10 ML VIAL SQ SCH (09:19)
[2017-01-24] MEDS: CHOLECALCIFEROL 1,000 UNIT TAB PO SCH (09:19)
[2017-01-24] MEDS: METOPROLOL TARTRATE 50 MG TAB PO SCH (09:20)
[2017-01-24] MEDS: ASPIRIN 81 MG CHEW PO SCH (09:20)
[2017-01-24] MEDS: VIT A,C & E-LUTEIN-MINERALS 1 EACH TAB PO SCH (09:20)
[2017-01-24] MEDS: CARBIDOPA-LEVODOPA 25-100 MG 1 EACH TAB PO SCH (09:20)
[2017-01-24] MEDS: RANOLAZINE 500 MG TAB.ER.12H PO SCH (09:20)
[2017-01-24] MEDS: DOCUSATE 100 MG CAP PO SCH (09:20)
[2017-01-24] MEDS: SPIRONOLACTONE 25 MG TAB PO SCH (09:21)
[2017-01-24] MEDS: HEPARIN SODIUM,PORCINE 5,000 UNIT/ML 1 ML VIAL SQ SCH (09:24)
[2017-01-24 09:36] VITALS: BP 113/71; PULSE 80; RESP 16; TEMP 97.2
--- NOTE | 2017-01-24 09:37 | P.DS ---
Providers Date of admission: 01/20/17 20:59 Expected date of discharge: 01/24/17 Attending physician: Peyman Bryant Consults: 01/20/17 20:59 Consult Physician Routine Consulting Provider: Deric An Consult Reason/Comments: chf, possible NSTEMI Do you want consulting provider notified?: Yes Primary care physician: Peyman Bryant Hospital Course: History present illness/Hospital course: This 81-year-old gentleman was admitted to the hospital because of progressive weakness shortness of breath with minimal exertion. He had no chest pain. Patient does have history of chronic atrial fibrillation and has a pacemaker. Patient did have brief syncopal episode few days prior to this admission. Following admission evaluation in the emergency room revealed at patient had evidence of CHF as noted on a chest x-ray, elevated BNP and patient having peripheral edema. The patient also has underlying history of coronary artery disease stable with no symptoms of angina, and his mattress adequately controlled. In parkinsonism adequately controlled. Patient does have a history of chronic daily headache and does have a history of mild dementia. Patient's conditions discussed with the spouse gave the hospital stay and with the patient. With diuresis his general status is improved. An echocardiogram revealed significant left ventricular dysfunction with an ejection fraction of 20%. Patient's being discharged to nursing facility will follow up at that facility. Patient will have rehab. Electrolytes BUN creatinine be checked weekly. The patient general status is fair , prognosis guarded. Patient will be on a low-sodium diet. Knee-high JAYSON hose to be in place. Final diagnosis to include 1. Acute congestive cardiac failure secondary to systolic dysfunction 2. Dilated ischemic cardiomyopathy 3. Near syncope. 4. Paroxysmal atrial fibrillation. 5. Pacemaker status. 6. Mild dementia. 7. Parkinson's. 8. Diabetes mellitus with complications of peripheral neuritis, autonomic neuritis, chronic kidney disease, atherosclerosis. 9. Chronic kidney disease stage III 10. Chronic headaches 11. History of chronic postural hypotension Patient Condition at Discharge: Fair Plan - Discharge Summary New Discharge Prescriptions: New Furosemide [Lasix] 40 mg PO DAILY #30 tablet Spironolactone [Aldactone] 12.5 mg PO DAILY tab Continue Insuln Asp Prt/Insulin Aspart [NovoLOG MIX 70-30 VIAL] 15 units SQ BID@0800, 1700 Rivastigmine 4.6MG/24Hr Patch [Exelon 4.6MG/24Hr Patch] 1 each TRANSDERM Q24HR Insulin NPH Human Isophane [humuLIN N] 15 units SQ HS Cholecalciferol [Vitamin D3] 2,000 unit PO DAILY@1200 Bimatoprost [Lumigan .01% Ophth Soln] 1 drop BOTH EYES HS Losartan Potassium 100 mg PO AC-BRKFST Aspirin 325 mg PO DAILY@1200 Atorvastatin [Lipitor] 40 mg PO HS Carbidopa/Levodopa [Sinemet 25-100 mg] 1 tab PO QID Carbidopa/Levodopa [Sinemet CR 50-200 mg] 2 tab PO HS Carboxymethylcellulose Sodium [Refresh Tears] 1 drop BOTH EYES HS Diazepam [Valium] 2.5 - 5 mg PO BID@0800,1200 Docusate [Colace] 100 mg PO DAILY@1200 Melatonin 12mg 12 mg PO HS Metoprolol Tartrate [Lopressor] 50 mg PO BID Midodrine HCl [ProAmatine] 2.5 mg PO TID Ranolazine [Ranexa] 500 mg PO BID Vit C/E/Zn/Coppr/Lutein/Zeaxan [Preservision Areds 2 Softgel] 1 cap PO DAILY Discontinued Furosemide [Lasix] 10 mg PO DAILY Discharge Medication List Insuln Asp Prt/Insulin Aspart [NovoLOG MIX 70-30 VIAL] 15 units SQ BID@0800, 1700 11/10/13 [History] Cholecalciferol [Vitamin D3] 2,000 unit PO DAILY@1200 05/10/14 [History] Insulin NPH Human Isophane [humuLIN N] 15 units SQ HS 05/10/14 [History] Rivastigmine 4.6MG/24Hr Patch [Exelon 4.6MG/24Hr Patch] 1 each TRANSDERM Q24HR 05/10/14 [History] Bimatoprost [Lumigan .01% Ophth Soln] 1 drop BOTH EYES HS 02/28/15 [History] Losartan Potassium 100 mg PO AC-BRKFST 02/28/15 [History] Aspirin 325 mg PO DAILY@1200 01/20/17 [History] Atorvastatin [Lipitor] 40 mg PO HS 01/20/17 [History] Carbidopa/Levodopa [Sinemet 25-100 mg] 1 tab PO QID 01/20/17 [History] Carbidopa/Levodopa [Sinemet CR 50-200 mg] 2 tab PO HS 01/20/17 [History] Carboxymethylcellulose Sodium [Refresh Tears] 1 drop BOTH EYES HS 01/20/17 [ History] Diazepam [Valium] 2.5 - 5 mg PO BID@0800,1200 01/20/17 [History] Docusate [Colace] 100 mg PO DAILY@1200 01/20/17 [History] Melatonin 12mg 12 mg PO HS 01/20/17 [History] Metoprolol Tartrate [Lopressor] 50 mg PO BID 01/20/17 [History] Midodrine HCl [ProAmatine] 2.5 mg PO TID 01/20/17 [History] Ranolazine [Ranexa] 500 mg PO BID 01/20/17 [History] Vit C/E/Zn/Coppr/Lutein/Zeaxan [Preservision Areds 2 Softgel] 1 cap PO DAILY [History] Furosemide [Lasix] 40 mg PO DAILY #30 tablet 01/24/17 [Rx] Spironolactone [Aldactone] 12.5 mg PO DAILY tab 01/24/17 [Rx] Follow up Appointment(s)/Referral(s): Peyman Bryant MD [Primary Care Provider] - 1-2 days
--- NOTE | 2017-01-24 11:29 | PN ---
DATE OF SERVICE: 01/23/2017 CHIEF COMPLAINT: Reevaluation. HISTORY OF PRESENT ILLNESS: This is an 81-year-old who was admitted to the hospital with CHF. The patient has congestive cardiac failure secondary to systolic dysfunction. The patient is feeling much better. He is more alert. The patient does have parkinsonism. REVIEW OF SYSTEMS: NEURO: Denies any headache at present. Does have chronic headaches. Denies dizziness. PSYCH: No anxiety, depression. CARDIAC: Denies chest pain, angina, palpitations. RESPIRATORY: Denies shortness of breath. Denies dyspnea on exertion with moving around the room with the therapist. No cough, hemoptysis. GI: No nausea, vomiting, abdominal pain, diarrhea. : No symptoms of dysuria or hematuria, frequency. Some incontinence. EXTREMITIES: Decreased edema. CONSTITUTIONAL: No fever or chills. PHYSICAL EXAMINATION: Pleasant gentleman, at present in no distress. VITAL SIGNS: Temperature 96.2, pulse rate 79, respirations 18, blood pressure 107/66, pulse ox of 93% on room air. HEENT: Normocephalic. NECK: No JVD. Hepatojugular reflux present. CHEST EXAMINATION: Clear to auscultation and percussion. CARDIAC: Normal S1, S2 with no gallops. Irregular rhythm. Systolic murmur 2/6, apex. ABDOMEN: Soft. Bowel sounds present. Extremities revel no edema, right lower leg; trace edema, left leg. Neurologically awake, alert, oriented to person, place. Moves both upper and lower extremities. Has generalized bradykinesia ( ). Laboratory assessment reveals hemoglobin 13.8, platelets 145. Potassium is 3.5. CO2 content 31. BUN 29, creatinine 1.6. Glucose was 73. Calcium 9.0. ASSESSMENT: 1. Acute congestive cardiac failure secondary to systolic dysfunction, improving. 2. Dilated ischemic cardiomyopathy. 3. Paroxysmal atrial fibrillation. 4. Pacemaker status. 5. Diabetes mellitus. 6. Hypokalemia. 7. Parkinson's. 8. Metabolic alkalosis. 9. Chronic kidney disease, stage III. PLAN: Patient is stable and improving. Continue present medical regimen. Potential transfer to nursing facility tomorrow for rehab. Patient's condition discussed with the patient. Prognosis guarded. MTDD
== END 2017-01-24 10:24 | DRG 291 ==
LOC: EC 18:46 → 6SEL 20:59
PROVIDERS: ADMIT Internal Medicine; ATTEND Internal Medicine
DX: I13.0 Hypertensive heart and chronic kidney disease with heart failure and stage 1 through stage 4 chronic kidney disease, or unspecified chronic kidney disease (principal); I50.23 Acute on chronic systolic (congestive) heart failure; E87.3 Alkalosis; I48.1 Persistent atrial fibrillation; G20 Parkinson's disease; E11.43 Type 2 diabetes mellitus with diabetic autonomic (poly)neuropathy; I25.82 Chronic total occlusion of coronary artery; F03.90 Unspecified dementia, unspecified severity, without behavioral disturbance, psychotic disturbance, mood disturbance, and anxiety; I48.92 Unspecified atrial flutter; I42.0 Dilated cardiomyopathy; N18.3 Chronic kidney disease, stage 3 (moderate); I25.5 Ischemic cardiomyopathy; I95.1 Orthostatic hypotension; E78.5 Hyperlipidemia, unspecified; H35.30 Unspecified macular degeneration; E87.6 Hypokalemia; I25.10 Atherosclerotic heart disease of native coronary artery without angina pectoris; Z79.82 Long term (current) use of aspirin; Z79.4 Long term (current) use of insulin; Z79.899 Other long term (current) drug therapy; Z96.651 Presence of right artificial knee joint; Z95.0 Presence of cardiac pacemaker; Z95.1 Presence of aortocoronary bypass graft; Z91.81 History of falling; Z86.19 Personal history of other infectious and parasitic diseases; Z88.8 Allergy status to other drugs, medicaments and biological substances
CPT/HCPCS: 36415; 71020; 80048; 80053; 81001; 82550; 82553; 83880; 84484; 85025; 85379; 85610; 85730; 87040; 93005; 93306; 94640

== ENCOUNTER 2017-02-04 11:39 | Emergency (ER) | payer MEDICARE, BC ==
[2017-02-04] MEDS ORDERED: SODIUM CHLORIDE 0.9% 500 ML IV STA (11:54)
--- NOTE | 2017-02-04 11:59 | ED ---
General Adult HPI - General Chief complaint: Weakness Stated complaint: Weakness Time Seen by Provider: 02/04/17 11:45 Source: patient, RN notes reviewed Mode of arrival: EMS Limitations: no limitations - History of Present Illness Initial comments: This is an 81-year-old male who presents emergency Department complaining of generalized weakness. Patient states he was in [facility] for 6-7 weeks. Patient was sent home today according to him when he got out of the car he felt weak and he had a sit down on the garage floor was unable to get up. called the [facility] the patient's come to the emergency department this time with complaint of weakness. Patient denies any headache patient denies numbness or focal weakness. Patient denies any lightheadedness dizziness or near syncopal episode. Patient denies chest pain palpitations difficulty breathing or shortness of breath. Patient denies any recent fever chills cough. Patient denies abdominal pain patient denies nausea vomiting or diarrhea. - Related Data Home Medications Medication Instructions Recorded Confirmed Insuln Asp Prt/Insulin Aspart 15 units SQ BID@0800,1700 11/10/13 02/04/17 [NovoLOG MIX 70-30 VIAL] Cholecalciferol [Vitamin D3] 2,000 unit PO DAILY@1200 05/10/14 02/04/17 Insulin NPH Human Isophane 15 units SQ 05/10/14 02/04/17 [humuLIN N] Rivastigmine 4.6MG/24Hr Patch 1 patch TRANSDERM Q24HR 05/10/14 02/04/17 [Exelon 4.6MG/24Hr Patch] Bimatoprost [Lumigan .01% Ophth 1 drop BOTH EYES 02/28/15 02/04/17 Soln] Losartan Potassium 100 mg PO AC-BRKFST 02/28/15 02/04/17 Aspirin 325 mg PO DAILY@1200 01/20/17 02/04/17 Atorvastatin [Lipitor] 40 mg PO HS 01/20/17 02/04/17 Carbidopa/Levodopa [Sinemet 25-100 1 tab PO QID 01/20/17 02/04/17 mg] Carbidopa/Levodopa [Sinemet CR 2 tab PO HS 01/20/17 02/04/17 50-200 mg] Carboxymethylcellulose Sodium 1 drop BOTH EYES HS 01/20/17 02/04/17 [Refresh Tears] Diazepam [Valium] 2.5 - 5 mg PO BID@0800,1200 01/20/17 02/04/17 Docusate [Colace] 100 mg PO DAILY@1200 01/20/17 02/04/17 Melatonin 12mg 12 mg PO HS 01/20/17 02/04/17 Metoprolol Tartrate [Lopressor] 50 mg PO BID 01/20/17 02/04/17 Midodrine HCl [ProAmatine] 2.5 mg PO TID 01/20/17 02/04/17 Ranolazine [Ranexa] 500 mg PO BID 01/20/17 02/04/17 Vit C/E/Zn/Coppr/Lutein/Zeaxan 1 cap PO DAILY 01/20/17 02/04/17 [Preservision Areds 2 Softgel] Previous Rx's Medication Instructions Recorded Furosemide [Lasix] 40 mg PO DAILY #30 tablet 01/24/17 Spironolactone [Aldactone] 12.5 mg PO DAILY tab 01/24/17 Allergies Allergy/AdvReac Type Severity Reaction Status Date / Time No Known Allergies Allergy Verified 02/04/17 12:58 Review of Systems ROS Statement: Those systems with pertinent positive or pertinent negative responses have been documented in the HPI. ROS Other: All systems not noted in ROS Statement are negative. Past Medical History Past Medical History: Atrial Fibrillation, Coronary Artery Disease (CAD), Cancer , Chest Pain / Angina, Diabetes Mellitus, Hypertension, Neurologic Disorder, Osteoarthritis (OA), Skin Disorder Additional Past Medical History / Comment(s): migraines, bruises easily, frequent urination, macular degeneration, CAD, CABG, A.FIB, PARKINSON'S, skin Ca History of Any Multi-Drug Resistant Organisms: None Reported Past Surgical History: Coronary Bypass/CABG Additional Past Surgical History / Comment(s): CABG 5 VESSEL 1996 IN [facility], "umbillical surgery", BILATERAL cataracts. PARTIAL KNEE REPLACEMENT R SIDE. Pacemaker 06/2015 Past Anesthesia/Blood Transfusion Reactions: Motion Sickness Additional Past Anesthesia/Blood Transfusion Reaction / Comment(s): PT RECIEVED BLOOD NO REACTION Past Psychological History: No Psychological Hx Reported Smoking Status: Never smoker Past Alcohol Use History: None Reported Past Drug Use History: None Reported - Past Family History Mother Additional Family Medical History / Comment(s): MOTHER AT 88. SHE HAD PARKINSON'S DX. Father Family Medical History: CVA/TIA Additional Family Medical History / Comment(s): FATHER AT AGE 71 OF CVA. General Exam - General Exam Comments Initial Comments: GENERAL: Patient is well-developed and well-nourished. Patient is nontoxic and well- hydrated and is in mild distress. ENT: Neck is soft and supple. No significant lymphadenopathy is noted. Oropharynx is clear. Moist mucous membranes. Neck has full range of motion without eliciting any pain. EYES: The sclera were anicteric and conjunctiva were pink and moist. Extraocular movements were intact and pupils were equal round and reactive to light. Eyelids were unremarkable. PULMONARY: Unlabored respirations. Good breath sounds bilaterally. No audible rales rhonchi or wheezing was noted. CARDIOVASCULAR: There is a regular rate and rhythm without any murmurs gallops or rubs. ABDOMEN: Soft and nontender with normal bowel sounds. No palpable organomegaly was noted. There is no palpable pulsatile mass. SKIN: Skin is clear with no lesions or rashes and otherwise unremarkable. NEUROLOGIC: Patient is alert and oriented x3. Cranial nerves II through XII are grossly intact. Motor and sensory are also intact. Normal speech, volume and content. Symmetrical smile. MUSCULOSKELETAL: Normal extremities with adequate strength and full range of motion. No lower extremity swelling or edema. No calf tenderness. LYMPHATICS: No significant lymphadenopathy is noted PSYCHIATRIC: Normal psychiatric evaluation. Limitations: no limitations Course Vital Signs 02/04/17 02/04/17 02/04/17 11:43 12:28 13:12 Temperature 97.6 F Pulse Rate 80 79 73 Respiratory 16 18 16 Rate Blood Pressure 109/65 99/67 99/67 O2 Sat by Pulse 96 100 96 Oximetry Medical Decision Making - Medical Decision Making EKG shows a ventricular paced rhythm at 84 bpm QRS is 166 QT interval is 450 QTC is 541. Patient was able to ablate the ER with no problem. Patient's chest x-ray was normal. Patient's wanted to take the patient home and attempt getting him into the house again. - Lab Data Result diagrams: 02/04/17 11:59 02/04/17 11:59 Lab Results 02/04/17 02/04/17 02/04/17 Range/Units 11:59 11:59 11:59 WBC 7.6 (3.8-10.6) k/uL RBC 4.35 (4.30-5.90) m/uL Hgb 15.5 (13.0-17.5) gm/dL Hct 48.2 (39.0-53.0) % MCV 110.8 H (80.0-100.0) fL MCH 35.8 H (25.0-35.0) pg MCHC 32.3 (31.0-37.0) g/dL RDW 14.0 (11.5-15.5) % Plt Count 248 (150-450) k/uL Neutrophils % 72 % Lymphocytes % 15 % Monocytes % 9 % Eosinophils % 1 % Basophils % 1 % Neutrophils # 5.5 (1.3-7.7) k/uL Lymphocytes # 1.1 (1.0-4.8) k/uL Monocytes # 0.7 (0-1.0) k/uL Eosinophils # 0.1 (0-0.7) k/uL Basophils # 0.1 (0-0.2) k/uL Manual Slide Review Performed Macrocytosis Marked PT (9.0-12.0) sec INR (<1.2) APTT (22.0-30.0) sec Sodium 138 (137-145) mmol/L Potassium 4.9 (3.5-5.1) mmol/L Chloride 102 (98-107) mmol/L Carbon Dioxide 24 (22-30) mmol/L Anion Gap 12 mmol/L BUN 37 H (9-20) mg/dL Creatinine 1.89 H (0.66-1.25) mg/dL Est GFR (MDRD) Af Amer 41 (>60 ml/min/1.73 sqM) Est GFR (MDRD) Non-Af 34 (>60 ml/min/1.73 sqM) Glucose 97 (74-99) mg/dL Calcium 9.1 (8.4-10.2) mg/dL Magnesium 1.7 (1.6-2.3) mg/dL Total Bilirubin 1.1 (0.2-1.3) mg/dL AST 19 (17-59) U/L ALT 11 L (21-72) U/L Alkaline Phosphatase 103 (38-126) U/L Total Creatine Kinase 37 L (55-170) U/L CK-MB (CK-2) 2.3 (0.0-2.4) ng/mL CK-MB (CK-2) Rel Index 6.2 Troponin I 0.025 (0.000-0.034) ng/mL Total Protein 7.0 (6.3-8.2) g/dL Albumin 3.6 (3.5-5.0) g/dL Urine Color Urine Appearance (Clear) Urine pH (5.0-8.0) Ur Specific Capulin (1.001-1.035) Urine Protein (Negative) Urine Glucose (UA) (Negative) Urine Ketones (Negative) Urine Blood (Negative) Urine Nitrite (Negative) Urine Bilirubin (Negative) Urine Urobilinogen (<2.0) mg/dL Ur Leukocyte Esterase (Negative) 02/04/17 02/04/17 Range/Units 11:59 12:08 WBC (3.8-10.6) k/uL RBC (4.30-5.90) m/uL Hgb (13.0-17.5) gm/dL Hct (39.0-53.0) % MCV (80.0-100.0) fL MCH (25.0-35.0) pg MCHC (31.0-37.0) g/dL RDW (11.5-15.5) % Plt Count (150-450) k/uL Neutrophils % % Lymphocytes % % Monocytes % % Eosinophils % % Basophils % % Neutrophils # (1.3-7.7) k/uL Lymphocytes # (1.0-4.8) k/uL Monocytes # (0-1.0) k/uL Eosinophils # (0-0.7) k/uL Basophils # (0-0.2) k/uL Manual Slide Review Macrocytosis PT 11.2 (9.0-12.0) sec INR 1.1 (<1.2) APTT 23.3 (22.0-30.0) sec Sodium (137-145) mmol/L Potassium (3.5-5.1) mmol/L Chloride (98-107) mmol/L Carbon Dioxide (22-30) mmol/L Anion Gap mmol/L BUN (9-20) mg/dL Creatinine (0.66-1.25) mg/dL Est GFR (MDRD) Af Amer (>60 ml/min/1.73 sqM) Est GFR (MDRD) Non-Af (>60 ml/min/1.73 sqM) Glucose (74-99) mg/dL Calcium (8.4-10.2) mg/dL Magnesium (1.6-2.3) mg/dL Total Bilirubin (0.2-1.3) mg/dL AST (17-59) U/L ALT (21-72) U/L Alkaline Phosphatase (38-126) U/L Total Creatine Kinase (55-170) U/L CK-MB (CK-2) (0.0-2.4) ng/mL CK-MB (CK-2) Rel Index Troponin I (0.000-0.034) ng/mL Total Protein (6.3-8.2) g/dL Albumin (3.5-5.0) g/dL Urine Color Yellow Urine Appearance Clear (Clear) Urine pH 6.0 (5.0-8.0) Ur Specific Capulin 1.010 (1.001-1.035) Urine Protein Trace H (Negative) Urine Glucose (UA) Negative (Negative) Urine Ketones Negative (Negative) Urine Blood Negative (Negative) Urine Nitrite Negative (Negative) Urine Bilirubin Negative (Negative) Urine Urobilinogen 2.0 (<2.0) mg/dL Ur Leukocyte Esterase Negative (Negative) Disposition Clinical Impression: Generalized weakness Disposition: HOME SELF-CARE Condition: Good Instructions: Weakness (ED) Referrals: Peyman Bryant MD [Primary Care Provider] - 1-2 days Time of Disposition: 14:08
[2017-02-04 12:23] LABS: Appearance,Urine Clear (Clear); Bilirubin,Urine Negative (Negative); Glucose,Urine (UA) Negative (Negative); Ketones,Urine Negative (Negative); Leukocyte Esterase,Urine Negative (Negative); Nitrite,Urine Negative (Negative); Protein,Urine Trace (Negative); UA Billing (MACRO vs. MICRO) CHEM
[2017-02-04 12:31] LABS: INR 1.1 (<1.2); Partial Thromboplastin Time 23.3 sec (22.0-30.0); Prothrombin Time 11.2 sec (9.0-12.0)
[2017-02-04 12:35] LABS: Basophils # (A) 0.1 k/uL (0-0.2); Basophils % (A) 1 %; CH 35.8; CHCM 32.4; Eosinophils # (A) 0.1 k/uL (0-0.7); Eosinophils % (A) 1 %; HCT 48.2 % (39.0-53.0); HDW 2.11; HGB 15.5 gm/dL (13.0-17.5); Luc % (Auto) 3; Lymphocytes # (A) 1.1 k/uL (1.0-4.8); Lymphocytes % (A) 15 %; MCH 35.8 pg (25.0-35.0); MCHC 32.3 g/dL (31.0-37.0); MCV 110.8 fL (80.0-100.0); Macrocytosis Marked; Mean Platelet Volume 8.9; Monocytes # (A) 0.7 k/uL (0-1.0); Monocytes % (A) 9 %; Neutrophils # (A) 5.5 k/uL (1.3-7.7); Neutrophils % (A) 72 %; RBC 4.35 m/uL (4.30-5.90); WBC 7.6 k/uL (3.8-10.6); WBC (Perox) 7.52
[2017-02-04 12:39] LABS: Calcium 9.1 mg/dL (8.4-10.2); Magnesium 1.7 mg/dL (1.6-2.3); Potassium 4.9 mmol/L (3.5-5.1); Total Bilirubin 1.1 mg/dL (0.2-1.3)
--- NOTE | 2017-02-04 12:42 | XR ---
EXAMINATION TYPE: XR chest 2V DATE OF EXAM: 02/04/2017 COMPARISON: 01/20/2017 HISTORY: 81-year-old male with weakness TECHNIQUE: AP and lateral views FINDINGS: Median sternotomy wires are present with post-CABG clips. Left anterior chest wall pacemaker generato r with right atrial and right ventricular leads. Heart is upper limits of normal in size. Mild elonga tion of the thoracic aorta with atherosclerotic arch calcifications. Mild diffuse interstitial promin ence. There is a trace left pleural effusion. No dawson consolidation. IMPRESSION: Borderline heart size and trace left effusion. Correlate to exclude mild CHF.
[2017-02-04 13:07] LABS: Creatine Kinase MB 2.3 ng/mL (0.0-2.4); Troponin I 0.025 ng/mL (0.000-0.034)
[2017-02-04 13:12] LABS: Manual Review Performed
[2017-02-04 14:12] VITALS: BP 130/63; PULSE 94; RESP 17; TEMP 98.5
== END 2017-02-04 14:09 | disposition home or self-care (01) ==
LOC: EC 11:39
DX: R53.1 Weakness (principal); I48.91 Unspecified atrial fibrillation; I25.10 Atherosclerotic heart disease of native coronary artery without angina pectoris; E11.9 Type 2 diabetes mellitus without complications; M19.90 Unspecified osteoarthritis, unspecified site; I10 Essential (primary) hypertension; Z85.828 Personal history of other malignant neoplasm of skin; Z96.651 Presence of right artificial knee joint; Z79.4 Long term (current) use of insulin; Z79.51 Long term (current) use of inhaled steroids; Z79.82 Long term (current) use of aspirin; Z79.899 Other long term (current) drug therapy
CPT/HCPCS: 36415; 71020; 80053; 81003; 82550; 82553; 83735; 84484; 85025; 85610; 85730; 93005; 99285